=== PATIENT | male | born 1945 | race Caucasian/White ===

== ENCOUNTER 2019-02-20 08:32 | Outpatient (CLI) | payer OTHER | END 2019-02-20 20:52 | disposition home or self-care (01) | LOC: SUS 08:32 | PROVIDERS: ATTEND Family Medicine | DX: Z13.6 Encounter for screening for cardiovascular disorders (principal); R16.0 Hepatomegaly, not elsewhere classified; R91.8 Other nonspecific abnormal finding of lung field; F17.200 Nicotine dependence, unspecified, uncomplicated | CPT/HCPCS: 71046-TC; 76700-TC ==

== ENCOUNTER 2019-09-26 06:19 | Inpatient (IN) | payer OTHER, SELFPAY ==
[2019-09-26] VITALS (18 sets, daily range): BP systolic 96–156
[~2019-09-26] VITALS: Ht 175.3 cm; Wt 98.0 kg
[2019-09-26] MEDS ORDERED: NACL 0.9% 1,000 ML IV ONE (06:42)
[2019-09-26] MEDS ORDERED: LevALBUTEROL HCL 1.25 MG/0.5 ML *CONC.* VIAL.NEB (XOPENEX CONC.) INH ONE (06:45)
[2019-09-26] MEDS ORDERED: cefTRIAXone 1 GM IVPB PREMIX 50 ML IV ONE (06:45)
[2019-09-26] MEDS ORDERED: ROCURONIUM BROMIDE 10 MG/ML (ZEMURON) IV ONE (06:45)
[2019-09-26] MEDS ORDERED: IPRATROPIUM BROM 0.5 MG/2.5 ML VIAL.NEB (ATROVENT) INH ONE (06:45)
[2019-09-26] MEDS ORDERED: methylPREDNISolone SOD SUCC/PF 62.5 MG/ML VIAL IVP ONE (06:45)
[2019-09-26] MEDS ORDERED: LORazepam 2 MG/ML VIAL IVP ONE (07:15)
[2019-09-26] MEDS ORDERED: PROPOFOL DRIP 100 ML IV ONE ×2 (07:15→20:52)
[2019-09-26 07:34] LABS: BASOPHILS % (AUTO) 0.4 % (0.0-2.0); EOSINOPHILS # (AUTO) 0.3 K/uL (0.0-0.4); HEMATOCRIT 41.3 % (36-54); HEMOGLOBIN 13.1 g/dL (14.0-18.0); LYMPHOCYTES # (AUTO) 5.3 K/uL (1.0-5.5); LYMPHOCYTES % (AUTO) 41.5 % (20.5-51.5); MEAN CORPUSCULAR HEMOGLOBIN 33 pg (27-31); MEAN CORPUSCULAR HGB CONC 32 % (32-36); MEAN CORPUSCULAR VOLUME 103 fL (79.0-98.0); MONOCYTES # (AUTO) 0.6 K/uL (0.0-1.0); MONOCYTES % (AUTO) 4.5 % (1.7-9.3); NEUTROPHILS # (AUTO) 6.6 K/uL (1.8-7.7); NEUTROPHILS % (AUTO) 51.6 % (40.0-70.0); PLATELET COUNT (AUTO) 204 K/uL (130-430); RED BLOOD CELL COUNT(AUTO) 4.01 MIL/uL (4.2-6.2); RED CELL DISTRIBUTION WIDTH 17.4 % (9.0-15.0); WHITE BLOOD COUNT (AUTO) 12.8 K/uL (4.8-10.8)
[2019-09-26 07:42] LABS: ANION GAP 11 (5-15); CALCIUM 7.9 mg/dL (8.4-11.0); CHLORIDE 107 mmol/L (98-107); CREATININE 1.42 mg/dL (0.55-1.30); GLUCOSE 230 mg/dL (70-99); POTASSIUM 3.8 mmol/L (3.5-5.1); SODIUM SERUM 142 mmol/L (136-145); UREA NITROGEN, BLOOD 14 mg/dL (8-21)
[2019-09-26 07:46] LABS: INR 1.5 (0.80-1.20); PROTHROMBIN TIME 14.7 SECS (9.5-12.5)
[2019-09-26 07:48] LABS: ALANINE AMINOTRANSFERASE 30 U/L (12-78); ALBUMIN 3.3 g/dL (3.4-4.8); ASPARTATE AMINOTRANSFERASE 19 U/L (10-37); TOTAL BILIRUBIN 0.6 mg/dL (0.0-1.0)
[2019-09-26] MEDS ORDERED: PIPERACILLIN/TAZO 3.38 GM in D5W 50 ML IV ONE (08:15)
[2019-09-26] MEDS ORDERED: VANCOMYCIN HCL 1,000 MG in D5W 250 ML IV ONE (08:15)
[2019-09-26] MEDS ORDERED: PIPERACILLIN/TAZOBACTAM 3.375 GM/VIAL (ZOSYN) IV ONE (08:24)
[2019-09-26] MEDS ORDERED: VANCOMYCIN HCL 1000 MG/VIAL IV ONE (08:26)
[2019-09-26 09:18] LABS: BILIRUBIN,URINE NEGATIVE (NEGATIVE); BLOOD, URINE 3+ (NEGATIVE); CLARITY/URINE SL CLOUDY (CLEAR); COLOR,URINE YELLOW (YELLOW); GLUCOSE,URINE NEGATIVE (NEGATIVE); KETONES,URINE NEGATIVE (NEGATIVE); LEUKOCYTE ESTERASE ,URINE NEGATIVE (NEGATIVE); NITRITE, URINE NEGATIVE (NEGATIVE); PH,URINE 5.5 (5.0-8.0); PROTEIN URINE 2+ (NEGATIVE); UROBILINOGEN,URINE 0.2 (0.2-1.0)
[2019-09-26 09:23] LABS: BACTERIA,URINE MODERATE /HPF (None Seen); FINE GRANULAR CASTS,URINE 0-10 /LPF (None Seen); RBC,URINE >100 /HPF (0-3); WBC,URINE 0-3 /HPF (0-3)
[2019-09-26] MEDS ORDERED: LISI10TA5 PO (09:24)
[2019-09-26] MEDS ORDERED: ALBU8.5H8 INH (09:24)
[2019-09-26] MEDS ORDERED: PANT20TA2 PO (09:24)
[2019-09-26] MEDS ORDERED: METO25TA6 PO (09:24)
[2019-09-26] MEDS ORDERED: ALBU2.5V7 INH (09:24)
[2019-09-26] MEDS ORDERED: SPIRIVA INH (09:24)
[2019-09-26] MEDS ORDERED: AMIO100T4 PO (09:24)
[2019-09-26] MEDS ORDERED: CYAN100T3 PO (09:24)
[2019-09-26] MEDS ORDERED: BUDE6HFA INH (09:24)
[2019-09-26] MEDS ORDERED: INSU100V11 SQ (09:24)
[2019-09-26] MEDS ORDERED: LIP40 PO (09:24)
[2019-09-26] MEDS ORDERED: XALEYE OP (09:24)
[2019-09-26] MEDS ORDERED: CHOL20004 PO (09:24)
[2019-09-26] MEDS ORDERED: METF1000 PO (09:24)
[2019-09-26] MEDS ORDERED: TIMO5DRO15 EACH EYE (09:24)
[2019-09-26] MEDS ORDERED: ACETAMINOPHEN 650 MG SUPP.RECT RC PRN (09:30)
[2019-09-26] MEDS ORDERED: APIX5TAB4 PO (11:43)
[2019-09-26 12:58] LABS: C-REACTIVE PROTEIN QUANT 0.2 mg/dL (0-0.5)
[2019-09-26] MEDS: AZITHROMYCIN 500 MG in NS 250 ML IV SCH (13:38)
[2019-09-26] MEDS: PIPERACILLIN/TAZO 2.25G/DEX-IS 50 ML IV SCH ×2 (18:08→23:15)
[2019-09-26] MEDS: INSULIN LISPRO SLIDING SCALE 100 UNITS/ML VIAL (humaLOG) SUBCUT PRN ×2 (18:37→23:19)
[2019-09-26] MEDS: NACL 0.9% 1,000 ML IV SCH (20:40)
[2019-09-26] MEDS ORDERED: PROPOFOL DRIP 100 ML IV PRN (21:45)
[2019-09-27] VITALS (25 sets, daily range): BP systolic 119–195
[2019-09-27] MEDS: NACL 0.9% 1,000 ML IV SCH ×3 (05:11→23:03)
[2019-09-27] MEDS: PIPERACILLIN/TAZO 2.25G/DEX-IS 50 ML IV SCH ×4 (05:14→23:26)
[2019-09-27] MEDS: INSULIN LISPRO SLIDING SCALE 100 UNITS/ML VIAL (humaLOG) SUBCUT PRN ×3 (05:23→23:22)
[2019-09-27 06:03] LABS: BASOPHILS % (AUTO) 0.1 % (0.0-2.0); HEMATOCRIT 34.8 % (36-54); HEMOGLOBIN 11.8 g/dL (14.0-18.0); LYMPHOCYTES # (AUTO) 0.8 K/uL (1.0-5.5); LYMPHOCYTES % (AUTO) 7.7 % (20.5-51.5); MEAN CORPUSCULAR HEMOGLOBIN 34 pg (27-31); MEAN CORPUSCULAR HGB CONC 34 % (32-36); MONOCYTES # (AUTO) 0.5 K/uL (0.0-1.0); MONOCYTES % (AUTO) 4.4 % (1.7-9.3); NEUTROPHILS # (AUTO) 9.4 K/uL (1.8-7.7); NEUTROPHILS % (AUTO) 87.8 % (40.0-70.0); RED BLOOD CELL COUNT(AUTO) 3.48 MIL/uL (4.2-6.2); RED CELL DISTRIBUTION WIDTH 16.6 % (9.0-15.0); WHITE BLOOD COUNT (AUTO) 10.7 K/uL (4.8-10.8)
[2019-09-27 06:54] LABS: MEAN CORPUSCULAR VOLUME 101 fL (79.0-98.0); PLATELET COUNT (AUTO) 125 K/uL (130-430)
[2019-09-27 07:10] LABS: FERRITIN 53 ng/mL (30-400)
[2019-09-27 07:33] LABS: ALBUMIN 2.9 g/dL (3.4-4.8); ANION GAP 11 (5-15); CALCIUM 8.2 mg/dL (8.4-11.0); CHLORIDE 105 mmol/L (98-107); CREATININE 1.11 mg/dL (0.55-1.30); GLUCOSE 162 mg/dL (70-99); SODIUM SERUM 137 mmol/L (136-145); THYROID STIMULATING HORMONE 0.98 uIu/mL (0.34-4.82); TOTAL BILIRUBIN 0.9 mg/dL (0.0-1.0); UREA NITROGEN, BLOOD 18 mg/dL (8-21)
[2019-09-27 07:36] LABS: POTASSIUM 5.6 mmol/L (3.5-5.1)
[2019-09-27 07:54] LABS: ASPARTATE AMINOTRANSFERASE 54 U/L (10-37)
[2019-09-27 07:55] LABS: ALANINE AMINOTRANSFERASE 29 U/L (12-78)
[2019-09-27] MEDS: FAMOTIDINE PF 20 MG/2 ML VIAL IVP SCH (08:04)
[2019-09-27] MEDS ORDERED: ENOXAPARIN SODIUM 40 MG/0.4 ML SYRINGE SUBCUT SCH (09:00)
[2019-09-27] MEDS ORDERED: APIXABAN 2.5 MG TABLET NG ONE (09:30)
[2019-09-27] MEDS ORDERED: AMIODARONE HCL 200 MG TABLET NG ONE (09:30)
[2019-09-27] MEDS ORDERED: PANTOPRAZOLE SODIUM 40 MG/VIAL (PROTONIX) IVP ONE (10:30)
[2019-09-27] MEDS ORDERED: PANTOPRAZOLE SODIUM 80 MG in NS 100 ML IV ONE (12:30)
[2019-09-27] MEDS ORDERED: PANTOPRAZOLE SODIUM 40 MG/VIAL (PROTONIX) ONE (12:32)
[2019-09-27] MEDS: AZITHROMYCIN 500 MG in NS 250 ML IV SCH (12:57)
[2019-09-27 13:21] LABS: HEMATOCRIT 35.3 % (36-54); HEMOGLOBIN 11.6 g/dL (14.0-18.0)
[2019-09-27] MEDS: PANTOPRAZOLE SODIUM 40 MG in NS 50 ML IV SCH ×3 (13:30→23:26)
[2019-09-27] MEDS ORDERED: FUROSEMIDE 20 MG/2 ML VIAL IVP ONE (15:45)
[2019-09-27 16:13] LABS: ANION GAP 13 (5-15); CHLORIDE 104 mmol/L (98-107); CREATININE 1.29 mg/dL (0.55-1.30); GLUCOSE 162 mg/dL (70-99); POTASSIUM 4.2 mmol/L (3.5-5.1); SODIUM SERUM 140 mmol/L (136-145); UREA NITROGEN, BLOOD 17 mg/dL (8-21)
[2019-09-27] MEDS ORDERED: METOPROLOL TARTRATE 5 MG/5 ML VIAL IVP ONE (18:45)
[2019-09-27 20:49] LABS: HEMATOCRIT 35.1 % (36-54); HEMOGLOBIN 11.6 g/dL (14.0-18.0)
[2019-09-27] MEDS: APIXABAN 2.5 MG TABLET NG SCH (21:00)
[2019-09-27] MEDS ORDERED: PHYTONADIONE 10 MG/ML AMP SUBCUT ONE (21:45)
[2019-09-28] VITALS (25 sets, daily range): BP systolic 117–162
[2019-09-28 05:31] LABS: BASOPHILS # (AUTO) 0.1 K/uL (0.0-0.2); BASOPHILS % (AUTO) 0.5 % (0.0-2.0); HEMATOCRIT 37.1 % (36-54); HEMOGLOBIN 12.2 g/dL (14.0-18.0); LYMPHOCYTES # (AUTO) 1.6 K/uL (1.0-5.5); LYMPHOCYTES % (AUTO) 12.2 % (20.5-51.5); MEAN CORPUSCULAR HEMOGLOBIN 33 pg (27-31); MEAN CORPUSCULAR HGB CONC 33 % (32-36); MEAN CORPUSCULAR VOLUME 101 fL (79.0-98.0); MONOCYTES # (AUTO) 0.8 K/uL (0.0-1.0); MONOCYTES % (AUTO) 6.1 % (1.7-9.3); NEUTROPHILS # (AUTO) 10.4 K/uL (1.8-7.7); NEUTROPHILS % (AUTO) 81.2 % (40.0-70.0); PLATELET COUNT (AUTO) 120 K/uL (130-430); RED BLOOD CELL COUNT(AUTO) 3.69 MIL/uL (4.2-6.2); RED CELL DISTRIBUTION WIDTH 16.6 % (9.0-15.0); WHITE BLOOD COUNT (AUTO) 12.9 K/uL (4.8-10.8)
[2019-09-28] MEDS: PANTOPRAZOLE SODIUM 40 MG in NS 50 ML IV SCH ×4 (05:53→20:28)
[2019-09-28] MEDS: PIPERACILLIN/TAZO 2.25G/DEX-IS 50 ML IV SCH ×3 (05:54→17:35)
[2019-09-28] MEDS: NACL 0.9% 1,000 ML IV SCH (05:56)
[2019-09-28 06:04] LABS: ALANINE AMINOTRANSFERASE 25 U/L (12-78); ALBUMIN 2.9 g/dL (3.4-4.8); ANION GAP 6 (5-15); CHLORIDE 102 mmol/L (98-107); CHOLESTEROL 110 mg/dL (<200); CREATININE 1.16 mg/dL (0.55-1.30); GLUCOSE 151 mg/dL (70-99); HDL CHOLESTEROL 43 mg/dL (>45); LDL CHOLESTEROL 59 mg/dL (<100); SODIUM SERUM 136 mmol/L (136-145); THYROID STIMULATING HORMONE 1.59 uIu/mL (0.34-4.82); TOTAL BILIRUBIN 1.1 mg/dL (0.0-1.0); TRIGLYCERIDES 69 mg/dL (30-150); UREA NITROGEN, BLOOD 17 mg/dL (8-21)
[2019-09-28 06:30] LABS: ASPARTATE AMINOTRANSFERASE 16 U/L (10-37)
[2019-09-28] MEDS: APIXABAN 2.5 MG TABLET NG SCH ×2 (08:40→20:27)
[2019-09-28] MEDS: FAMOTIDINE PF 20 MG/2 ML VIAL IVP SCH (08:41)
[2019-09-28] MEDS: AMIODARONE HCL 200 MG TABLET PO SCH ×2 (09:00→20:29)
[2019-09-28] MEDS ORDERED: AMIODARONE HCL 200 MG TABLET NG SCH (09:00)
[2019-09-28] MEDS ORDERED: CARVEDILOL 6.25 MG TABLET (COREG) PO ONE (09:45)
[2019-09-28] MEDS ORDERED: ONDANSETRON HCL 4 MG/2 ML VIAL IVP PRN (15:00)
[2019-09-28] MEDS: INSULIN LISPRO SLIDING SCALE 100 UNITS/ML VIAL (humaLOG) SUBCUT PRN (17:43)
[2019-09-28 18:06] LABS: MYCOPLASMA PNEUMONIAE IgM <770 U/mL (0-769)
[2019-09-28] MEDS: IPRATROPIUM/ALBUTEROL SULFATE 3 ML AMPUL.NEB (DUONEB) INH SCH ×2 (19:00→23:08)
[2019-09-28] MEDS: CARVEDILOL 6.25 MG TABLET (COREG) PO SCH (20:28)
[2019-09-28] MEDS: DOXYCYCLINE HYCLATE 100 MG CAPSULE PO SCH (20:29)
[2019-09-29] VITALS (21 sets, daily range): BP systolic 108–205
[2019-09-29] MEDS: NACL 0.9% 1,000 ML IV SCH (00:39)
[2019-09-29] MEDS: PIPERACILLIN/TAZO 2.25G/DEX-IS 50 ML IV SCH ×3 (00:40→11:53)
[2019-09-29] MEDS: PANTOPRAZOLE SODIUM 40 MG in NS 50 ML IV SCH ×2 (00:40→05:36)
[2019-09-29] MEDS: INSULIN LISPRO SLIDING SCALE 100 UNITS/ML VIAL (humaLOG) SUBCUT PRN ×3 (01:01→12:06)
[2019-09-29] MEDS: IPRATROPIUM/ALBUTEROL SULFATE 3 ML AMPUL.NEB (DUONEB) INH SCH ×6 (04:09→23:05)
[2019-09-29 06:04] LABS: BASOPHILS % (AUTO) 0.4 % (0.0-2.0); EOSINOPHILS # (AUTO) 0.1 K/uL (0.0-0.4); EOSINOPHILS % (AUTO) 1.2 % (0.0-4.0); HEMATOCRIT 37.7 % (36-54); HEMOGLOBIN 12.2 g/dL (14.0-18.0); LYMPHOCYTES # (AUTO) 2.4 K/uL (1.0-5.5); LYMPHOCYTES % (AUTO) 19.5 % (20.5-51.5); MEAN CORPUSCULAR HEMOGLOBIN 33 pg (27-31); MEAN CORPUSCULAR HGB CONC 32 % (32-36); MEAN CORPUSCULAR VOLUME 102 fL (79.0-98.0); MONOCYTES # (AUTO) 0.9 K/uL (0.0-1.0); MONOCYTES % (AUTO) 7.6 % (1.7-9.3); NEUTROPHILS # (AUTO) 8.8 K/uL (1.8-7.7); NEUTROPHILS % (AUTO) 71.3 % (40.0-70.0); PLATELET COUNT (AUTO) 176 K/uL (130-430); RED CELL DISTRIBUTION WIDTH 16.9 % (9.0-15.0); WHITE BLOOD COUNT (AUTO) 12.4 K/uL (4.8-10.8)
[2019-09-29] MEDS: APIXABAN 2.5 MG TABLET NG SCH ×2 (07:40→20:27)
[2019-09-29] MEDS: FAMOTIDINE PF 20 MG/2 ML VIAL IVP SCH (08:00)
[2019-09-29] MEDS: AMIODARONE HCL 200 MG TABLET PO SCH ×2 (08:01→20:27)
[2019-09-29] MEDS: CARVEDILOL 6.25 MG TABLET (COREG) PO SCH ×2 (08:02→21:00)
[2019-09-29] MEDS: DOXYCYCLINE HYCLATE 100 MG CAPSULE PO SCH ×2 (08:03→20:28)
[2019-09-29 09:40] LABS: ALANINE AMINOTRANSFERASE 38 U/L (12-78); ANION GAP 9 (5-15); ASPARTATE AMINOTRANSFERASE 21 U/L (10-37); CHLORIDE 104 mmol/L (98-107); CREATININE 0.96 mg/dL (0.55-1.30); GLUCOSE 206 mg/dL (70-99); SODIUM SERUM 141 mmol/L (136-145); TOTAL BILIRUBIN 1.4 mg/dL (0.0-1.0); UREA NITROGEN, BLOOD 16 mg/dL (8-21)
[2019-09-29] MEDS: PANTOPRAZOLE SODIUM 40 MG TAB PO SCH ×2 (09:50→20:28)
[2019-09-29] MEDS: cefTRIAXone 1 GM in D5W 50 ML IV SCH (18:26)
[2019-09-30] MEDS: INSULIN LISPRO SLIDING SCALE 100 UNITS/ML VIAL (humaLOG) SUBCUT PRN ×4 (00:03→17:40)
[2019-09-30] MEDS: IPRATROPIUM/ALBUTEROL SULFATE 3 ML AMPUL.NEB (DUONEB) INH SCH ×6 (03:35→23:00)
[2019-09-30 07:02] LABS: BASOPHILS % (AUTO) 0.3 % (0.0-2.0); EOSINOPHILS # (AUTO) 0.2 K/uL (0.0-0.4); EOSINOPHILS % (AUTO) 3.2 % (0.0-4.0); HEMATOCRIT 31.1 % (36-54); HEMOGLOBIN 10.5 g/dL (14.0-18.0); LYMPHOCYTES % (AUTO) 18.3 % (20.5-51.5); MEAN CORPUSCULAR HEMOGLOBIN 34 pg (27-31); MEAN CORPUSCULAR HGB CONC 34 % (32-36); MEAN CORPUSCULAR VOLUME 99 fL (79.0-98.0); MONOCYTES # (AUTO) 0.4 K/uL (0.0-1.0); MONOCYTES % (AUTO) 6.6 % (1.7-9.3); NEUTROPHILS # (AUTO) 4.1 K/uL (1.8-7.7); NEUTROPHILS % (AUTO) 71.6 % (40.0-70.0); PLATELET COUNT (AUTO) 106 K/uL (130-430); RED BLOOD CELL COUNT(AUTO) 3.13 MIL/uL (4.2-6.2); RED CELL DISTRIBUTION WIDTH 16.6 % (9.0-15.0); WHITE BLOOD COUNT (AUTO) 5.7 K/uL (4.8-10.8)
[2019-09-30 07:54] VITALS: BP_SYST 150
[2019-09-30] MEDS ORDERED: FUROSEMIDE 20 MG/2 ML VIAL IVP ONE (09:15)
[2019-09-30] MEDS: AMIODARONE HCL 200 MG TABLET PO SCH ×2 (09:25→21:28)
[2019-09-30] MEDS: CARVEDILOL 6.25 MG TABLET (COREG) PO SCH ×2 (09:25→21:29)
[2019-09-30] MEDS: PANTOPRAZOLE SODIUM 40 MG TAB PO SCH ×2 (09:25→21:28)
[2019-09-30] MEDS: DOXYCYCLINE HYCLATE 100 MG CAPSULE PO SCH ×2 (09:27→21:29)
[2019-09-30] MEDS: APIXABAN 2.5 MG TABLET NG SCH ×2 (09:27→21:31)
[2019-09-30] MEDS ORDERED: POLYETHYLENE GLYCOL 3350, 17 GM/ POWD.PACK PO PRN (11:15)
[2019-09-30] MEDS ORDERED: DOCUSATE SODIUM 100 MG CAPSULE PO PRN (11:15)
[2019-09-30 12:30] VITALS: BP_SYST 133
[2019-09-30] MEDS: cefTRIAXone 1 GM in D5W 50 ML IV SCH (14:23)
[2019-09-30 16:39] VITALS: BP_SYST 126
[2019-09-30 20:05] VITALS: BP_SYST 125
[2019-10-01 00:01] VITALS: BP_SYST 128
[2019-10-01] MEDS: INSULIN LISPRO SLIDING SCALE 100 UNITS/ML VIAL (humaLOG) SUBCUT PRN ×5 (00:33→23:21)
[2019-10-01 06:16] LABS: BASOPHILS % (AUTO) 0.5 % (0.0-2.0); EOSINOPHILS # (AUTO) 0.2 K/uL (0.0-0.4); HEMATOCRIT 31.3 % (36-54); HEMOGLOBIN 10.6 g/dL (14.0-18.0); LYMPHOCYTES # (AUTO) 0.9 K/uL (1.0-5.5); LYMPHOCYTES % (AUTO) 18.1 % (20.5-51.5); MEAN CORPUSCULAR HEMOGLOBIN 34 pg (27-31); MEAN CORPUSCULAR HGB CONC 34 % (32-36); MEAN CORPUSCULAR VOLUME 99 fL (79.0-98.0); MONOCYTES # (AUTO) 0.4 K/uL (0.0-1.0); MONOCYTES % (AUTO) 7.2 % (1.7-9.3); NEUTROPHILS # (AUTO) 3.6 K/uL (1.8-7.7); NEUTROPHILS % (AUTO) 70.2 % (40.0-70.0); PLATELET COUNT (AUTO) 111 K/uL (130-430); RED BLOOD CELL COUNT(AUTO) 3.16 MIL/uL (4.2-6.2); RED CELL DISTRIBUTION WIDTH 16.5 % (9.0-15.0); WHITE BLOOD COUNT (AUTO) 5.1 K/uL (4.8-10.8)
[2019-10-01 06:29] LABS: ALANINE AMINOTRANSFERASE 38 U/L (12-78); ALBUMIN 2.5 g/dL (3.4-4.8); ANION GAP 5 (5-15); ASPARTATE AMINOTRANSFERASE 25 U/L (10-37); CALCIUM 8.3 mg/dL (8.4-11.0); CHLORIDE 102 mmol/L (98-107); CREATININE 0.96 mg/dL (0.55-1.30); GLUCOSE 168 mg/dL (70-99); POTASSIUM 3.7 mmol/L (3.5-5.1); SODIUM SERUM 136 mmol/L (136-145); TOTAL BILIRUBIN 0.7 mg/dL (0.0-1.0); UREA NITROGEN, BLOOD 14 mg/dL (8-21)
[2019-10-01] MEDS: IPRATROPIUM/ALBUTEROL SULFATE 3 ML AMPUL.NEB (DUONEB) INH SCH ×5 (07:07→23:59)
[2019-10-01 08:10] VITALS: BP_SYST 137
[2019-10-01] MEDS: DOXYCYCLINE HYCLATE 100 MG CAPSULE PO SCH ×2 (08:44→20:35)
[2019-10-01] MEDS: PANTOPRAZOLE SODIUM 40 MG TAB PO SCH ×2 (08:44→20:34)
[2019-10-01] MEDS: APIXABAN 2.5 MG TABLET NG SCH ×2 (08:45→20:33)
[2019-10-01] MEDS: AMIODARONE HCL 200 MG TABLET PO SCH ×2 (08:46→20:34)
[2019-10-01] MEDS: CARVEDILOL 6.25 MG TABLET (COREG) PO SCH ×2 (08:47→20:35)
[2019-10-01] MEDS: FUROSEMIDE 20 MG/2 ML VIAL IVP SCH (08:48)
[2019-10-01 12:35] VITALS: BP_SYST 131
[2019-10-01] MEDS: cefTRIAXone 1 GM in D5W 50 ML IV SCH (15:10)
[2019-10-01 16:00] VITALS: BP_SYST 140
[2019-10-01 20:37] VITALS: BP_SYST 145
[2019-10-01 23:30] VITALS: BP_SYST 150
[2019-10-02] MEDS: IPRATROPIUM/ALBUTEROL SULFATE 3 ML AMPUL.NEB (DUONEB) INH SCH ×6 (03:20→23:16)
[2019-10-02] MEDS: INSULIN LISPRO SLIDING SCALE 100 UNITS/ML VIAL (humaLOG) SUBCUT PRN ×4 (05:23→23:21)
[2019-10-02 08:00] VITALS: BP_SYST 148
[2019-10-02] MEDS: PANTOPRAZOLE SODIUM 40 MG TAB PO SCH ×2 (08:30→21:31)
[2019-10-02] MEDS: APIXABAN 2.5 MG TABLET NG SCH ×2 (08:31→21:29)
[2019-10-02] MEDS: CARVEDILOL 6.25 MG TABLET (COREG) PO SCH ×2 (08:31→21:33)
[2019-10-02] MEDS: DOXYCYCLINE HYCLATE 100 MG CAPSULE PO SCH ×2 (08:32→21:31)
[2019-10-02] MEDS: AMIODARONE HCL 200 MG TABLET PO SCH ×2 (08:32→21:34)
[2019-10-02] MEDS: FUROSEMIDE 20 MG/2 ML VIAL IVP SCH (08:33)
[2019-10-02 12:17] VITALS: BP_SYST 138
[2019-10-02] MEDS: cefTRIAXone 1 GM in D5W 50 ML IV SCH (14:33)
[2019-10-02 16:29] VITALS: BP_SYST 126
[2019-10-02 20:00] VITALS: BP_SYST 141
[2019-10-02 23:17] VITALS: BP_SYST 133
[2019-10-02 23:27] VITALS: BP_SYST 133
[2019-10-03] MEDS: IPRATROPIUM/ALBUTEROL SULFATE 3 ML AMPUL.NEB (DUONEB) INH SCH ×3 (03:10→11:26)
[2019-10-03] MEDS: INSULIN LISPRO SLIDING SCALE 100 UNITS/ML VIAL (humaLOG) SUBCUT PRN ×2 (05:15→11:34)
[2019-10-03 06:55] LABS: BASOPHILS % (AUTO) 0.5 % (0.0-2.0); EOSINOPHILS # (AUTO) 0.1 K/uL (0.0-0.4); EOSINOPHILS % (AUTO) 2.9 % (0.0-4.0); HEMATOCRIT 34.4 % (36-54); HEMOGLOBIN 11.4 g/dL (14.0-18.0); LYMPHOCYTES % (AUTO) 19.8 % (20.5-51.5); MEAN CORPUSCULAR HEMOGLOBIN 33 pg (27-31); MEAN CORPUSCULAR HGB CONC 33 % (32-36); MEAN CORPUSCULAR VOLUME 99 fL (79.0-98.0); MONOCYTES # (AUTO) 0.3 K/uL (0.0-1.0); MONOCYTES % (AUTO) 5.8 % (1.7-9.3); NEUTROPHILS # (AUTO) 3.7 K/uL (1.8-7.7); PLATELET COUNT (AUTO) 119 K/uL (130-430); RED BLOOD CELL COUNT(AUTO) 3.48 MIL/uL (4.2-6.2); RED CELL DISTRIBUTION WIDTH 16.6 % (9.0-15.0); WHITE BLOOD COUNT (AUTO) 5.2 K/uL (4.8-10.8)
[2019-10-03 08:00] VITALS: BP_SYST 143
[2019-10-03 08:23] LABS: ALANINE AMINOTRANSFERASE 38 U/L (12-78); ALBUMIN 2.8 g/dL (3.4-4.8); ANION GAP 8 (5-15); ASPARTATE AMINOTRANSFERASE 18 U/L (10-37); CALCIUM 8.6 mg/dL (8.4-11.0); CHLORIDE 101 mmol/L (98-107); CREATININE 1.15 mg/dL (0.55-1.30); GLUCOSE 186 mg/dL (70-99); POTASSIUM 3.4 mmol/L (3.5-5.1); SODIUM SERUM 137 mmol/L (136-145); TOTAL BILIRUBIN 0.7 mg/dL (0.0-1.0); UREA NITROGEN, BLOOD 12 mg/dL (8-21)
[2019-10-03] MEDS: DOXYCYCLINE HYCLATE 100 MG CAPSULE PO SCH (08:24)
[2019-10-03] MEDS: PANTOPRAZOLE SODIUM 40 MG TAB PO SCH (08:24)
[2019-10-03] MEDS: AMIODARONE HCL 200 MG TABLET PO SCH (08:25)
[2019-10-03] MEDS: CARVEDILOL 6.25 MG TABLET (COREG) PO SCH (08:25)
[2019-10-03] MEDS: APIXABAN 2.5 MG TABLET NG SCH (08:26)
[2019-10-03] MEDS ORDERED: FUROSEMIDE 40 MG TABLET PO SCH (09:00)
[2019-10-03] MEDS ORDERED: POTASSIUM CHLORIDE 10 MEQ TAB.PRT.SR PO ONE ×2 (13:00)
[2019-10-03 13:17] VITALS: BP_SYST 126
[2019-10-03 13:19] VITALS: BP_SYST 146
[2019-10-04] MEDS ORDERED: PANTOPRAZOLE SODIUM 40 MG TAB PO SCH (09:00)
== END 2019-10-03 14:30 | disposition home or self-care (01) | DRG 871 ==
LOC: SED 06:19 → SIC 09:09 → EEVIPCON 09:11 → SIC 10:10 → STU 09-29 18:48
PROVIDERS: ADMIT Internal Medicine; ATTEND Internal Medicine
PROC: 02HV33Z Insertion of Infusion Device into Superior Vena Cava, Percutaneous Approach (ICD-10-PCS; principal; 2019-09-27)
PROC: B548ZZA Ultrasonography of Superior Vena Cava, Guidance (ICD-10-PCS; 2019-09-27)
DX: A41.9 Sepsis, unspecified organism (principal); J18.9 Pneumonia, unspecified organism; J96.01 Acute respiratory failure with hypoxia; J44.1 Chronic obstructive pulmonary disease with (acute) exacerbation; E87.2 Acidosis; J44.0 Chronic obstructive pulmonary disease with (acute) lower respiratory infection; I48.92 Unspecified atrial flutter; J91.8 Pleural effusion in other conditions classified elsewhere; E44.0 Moderate protein-calorie malnutrition; R65.20 Severe sepsis without septic shock; I11.0 Hypertensive heart disease with heart failure; E03.9 Hypothyroidism, unspecified; E11.9 Type 2 diabetes mellitus without complications; E78.5 Hyperlipidemia, unspecified; F17.290 Nicotine dependence, other tobacco product, uncomplicated; E66.9 Obesity, unspecified; I48.0 Paroxysmal atrial fibrillation; I34.0 Nonrheumatic mitral (valve) insufficiency; I27.20 Pulmonary hypertension, unspecified; E87.6 Hypokalemia; I50.9 Heart failure, unspecified; Z78.9 Other specified health status; Z79.01 Long term (current) use of anticoagulants; Z79.4 Long term (current) use of insulin; Z79.82 Long term (current) use of aspirin; Z79.899 Other long term (current) drug therapy; Z68.31 Body mass index [BMI] 31.0-31.9, adult; Z03.818 Encounter for observation for suspected exposure to other biological agents ruled out
CPT/HCPCS: 36415; 36600; 71045; 80048; 80053; 80061; 81000-TC; 82550-TC; 82728; 82803-TC; 82962; 83605; 83615-TC; 83735-TC; 83880; 84443-TC; 84484; 85018-TC; 85025; 85610-TC; 85651-TC; 85730-TC; 86140; 86710; 86738; 87040-TC; 87070-TC; 87081; 87086; 87205-TC; 87449; 92610-GN; 93005; 93306; 94002; 94003; 94640; 94760; 96365; 96366; 96367; 96375; 99285; C1751; C9113; G0378; J0456; J0696; J1650; J1940; J2060; J2543; J2704; J2930; J3370; J3430; J3490; J7030; J7050; J7060; J7612

== ENCOUNTER 2019-11-10 09:03 | Inpatient (IN) | payer OTHER, SELFPAY ==
[~2019-11-10] VITALS: Ht 172.7 cm; Wt 86.3 kg
[~2019-11-10 09:03] MED LIST: ALBU8.5H8 INH; AMIO100T4 PO; APIX5TAB4 PO; BUDE6HFA INH; CHOL20004 PO; CYAN100T3 PO; LIP40 PO; METF1000 PO; PANT20TA2 PO; SPIRIVA INH; TIMO5DRO15 EACH EYE; XALEYE OP
[2019-11-10 09:14] VITALS: BP_SYST 165
--- NOTE | 2019-11-10 09:21 | NUR ---
BIB SQ 64 from home for ALOC Placed in room 02 . Placed on county records management officer, blood pressure machine and pulse oximeter. To gown for exam. Side rails up. Dietary tray ordered. POC BS [address] Snell
--- NOTE | 2019-11-10 09:25 | NUR ---
Food tray at bedside patient eating, Dr. Snell at bedside, lab at bedside. Spoke with King per patient request who stated patient has been dizzy, seen by Dr. Wright who took blood work no other recommendation, pt didn't wake up until noon, fell yesterday, was unable to wake him up this AM, 911 called
[2019-11-10 09:41] LABS: BASOPHILS % (AUTO) 0.8 % (0.0-2.0); EOSINOPHILS # (AUTO) 0.1 K/uL (0.0-0.4); HEMATOCRIT 34.1 % (36-54); HEMOGLOBIN 11.6 g/dL (14.0-18.0); LYMPHOCYTES # (AUTO) 1.5 K/uL (1.0-5.5); LYMPHOCYTES % (AUTO) 23.6 % (20.5-51.5); MEAN CORPUSCULAR HEMOGLOBIN 34 pg (27-31); MEAN CORPUSCULAR HGB CONC 34 % (32-36); MEAN CORPUSCULAR VOLUME 99 fL (79.0-98.0); MONOCYTES # (AUTO) 0.4 K/uL (0.0-1.0); NEUTROPHILS # (AUTO) 4.3 K/uL (1.8-7.7); NEUTROPHILS % (AUTO) 67.6 % (40.0-70.0); PLATELET COUNT (AUTO) 178 K/uL (130-430); RED BLOOD CELL COUNT(AUTO) 3.45 MIL/uL (4.2-6.2); RED CELL DISTRIBUTION WIDTH 17.8 % (9.0-15.0); WHITE BLOOD COUNT (AUTO) 6.3 K/uL (4.8-10.8)
[2019-11-10 09:48] LABS: ANION GAP 8 (5-15); CALCIUM 8.6 mg/dL (8.4-11.0); CHLORIDE 108 mmol/L (98-107); CREATININE 1.57 mg/dL (0.55-1.30); GLUCOSE 59 mg/dL (70-99); POTASSIUM 4.6 mmol/L (3.5-5.1); SODIUM SERUM 143 mmol/L (136-145); UREA NITROGEN, BLOOD 13 mg/dL (8-21)
[2019-11-10] MEDS ORDERED: INSU100I20 SQ (09:51)
[2019-11-10 09:53] LABS: ALANINE AMINOTRANSFERASE 36 U/L (12-78); ALBUMIN 3.2 g/dL (3.4-4.8); ASPARTATE AMINOTRANSFERASE 27 U/L (10-37); TOTAL BILIRUBIN 0.6 mg/dL (0.0-1.0)
[2019-11-10] MEDS ORDERED: D5W 1,000 ML IV PRN ×2 (09:53→13:51)
[2019-11-10] MEDS ORDERED: GLUCOSE 15 GM GEL (in 37.5 GM TUBE) PO PRN ×2 (10:00→14:00)
[2019-11-10] MEDS ORDERED: DEXTROSE 50% JECT 50 ML DISP.SYRIN IVP PRN ×2 (10:00→14:00)
[2019-11-10] MEDS ORDERED: DEXTROSE 50% JECT 50 ML DISP.SYRIN IVP ONE (10:00)
--- NOTE | 2019-11-10 10:12 | NUR ---
Admit orders obtained placed in computer awaiting call from [facility] charge for bed placement
[2019-11-10] MEDS ORDERED: DEXTROSE 50% JECT 50 ML DISP.SYRIN ONE (10:15)
--- NOTE | 2019-11-10 10:23 | NUR ---
20G IV TO LEFT HAND FROM THE FEILD INFILTRATED NEW IV STARTED TO LEFT WRIST WITH GOOD BLOOD FLOW AMP D50 GIVEN FOR POC BS 47. PATIENT ATE 90% OF TRAY A&O X 4 WILL CONTINUE TO MONITOR
[2019-11-10] MEDS: D5W 1,000 ML IV SCH ×2 (10:40→20:48)
--- NOTE | 2019-11-10 10:56 | NUR ---
CALLED TO UPDATED ON PLAN OF CARE, ADDRESSED ALL CONCERNS DENIED ANY ADDITIONAL QUESTIONS
--- NOTE | 2019-11-10 11:05 | NUR ---
REPEAT POC BS 153 IV D5W INFUSING WITHOUT COMPLICATION AWAITING BED ASSIGNMENT
--- NOTE | 2019-11-10 11:09 | NUR ---
Medication reconciliation completed with information provided by prior record and the patient. Any prior medication reconciliation on file was reviewed and corrected.
--- NOTE | 2019-11-10 11:30 | NUR ---
opening note received bedside sbar from ED nurse, patient awake, alert, bed in low and locked position, call light within reach,
--- NOTE | 2019-11-10 11:32 | NUR ---
ADMIT NOTE Received pt from ER to the floor with a diagnosis of HYPOGLYCEMIA. Admission process initiated. patient oriented to pain management, safety and call light-teach back done.
[2019-11-10 11:45] VITALS: BP_SYST 160
--- NOTE | 2019-11-10 11:47 | NUR ---
Patient will be admitted to care of [facility]. Admitted to Tele unit. Will go to room 110. Belongings list completed. Complete and up to date summary report printed. SBAR report to be given at bedside with opportunity for questions to Tiffanie HUNT.
--- NOTE | 2019-11-10 11:50 | NUR ---
At time of transfer glucose 152 IVF infusing without complication A&O x 4 addressed all concerns and questions by patient and recieving nurse
[2019-11-10 12:08] VITALS: BP_SYST 160
--- NOTE | 2019-11-10 13:30 | NUR ---
nurse note patient in bed, respirations even, non labored, bed in low and locked position, call light within reach, bed alarm on
[2019-11-10] MEDS ORDERED: ALBUTEROL SULFATE 0.083% 2.5 MG/3 ML VIAL.NEB INH PRN (13:45)
[2019-11-10] MEDS ORDERED: HYDROcodone/ACETAMIN 5-325 MG TAB (NORCO/ VICODIN) PO PRN (14:00)
[2019-11-10] MEDS ORDERED: HYDROcodone/ACETAMIN 10-325 MG TAB PO PRN (14:00)
[2019-11-10] MEDS ORDERED: LORazepam 2 MG/ML VIAL IVP PRN (14:00)
[2019-11-10] MEDS ORDERED: ONDANSETRON HCL 4 MG/2 ML VIAL IVP PRN (14:00)
[2019-11-10] MEDS ORDERED: ACETAMINOPHEN 325 MG TABLET PO PRN (14:00)
--- NOTE | 2019-11-10 14:01 | NUR ---
CONSULTATION PAGED REASON FOR CONSULTATION:HTN WAS CONSULT CALLED?Y PERSON WHO WAS NOTIFIED:NICCI CONSULTING PHYSICIAN:PASTOR PANG IT INFRASTRUCTURE SPECIALIST SPECIALTY:CARDIO IT INFRASTRUCTURE SPECIALIST PHONE NUMBER:[phone] REQUESTING PHYSICIAN:SUNNY ROQUE
--- NOTE | 2019-11-10 14:08 | NUR ---
CONSULTATION PAGED REASON FOR CONSULTATION:HYPOGLYCEMIA / DM WAS CONSULT CALLED?Y PERSON WHO WAS NOTIFIED:EVAN CONSULTING PHYSICIAN:ASHLEY SOUZA COMPUTATIONAL THEORY SCIENTIST SPECIALTY:ENDOCRINCE COMPUTATIONAL THEORY SCIENTIST PHONE NUMBER:[phone] REQUESTING PHYSICIAN:SUNNY PANG DOCTOR OUT OF TOWN WAS INFORMED HE WILL NOT TAKE PATIENT AND NEED TO REQUEST FOR A DIFFERENT PHYSICIAN.
--- NOTE | 2019-11-10 14:16 | NUR ---
CONSULTATION PAGED REASON FOR CONSULTATION:HYPOGLYCEMIA / DM WAS CONSULT CALLED?Y PERSON WHO WAS NOTIFIED:NAHOMY CONSULTING PHYSICIAN:SUE MONTEIRO WIRE TWISTER SPECIALTY:ENDOCRINE WIRE TWISTER PHONE NUMBER:[phone] REQUESTING PHYSICIAN:SUNNY PANG
[2019-11-10 16:00] VITALS: BP_SYST 164
[2019-11-10] MEDS: LATANOPROST 2.5 ML DROPS (XALATAN) OP SCH (17:35)
--- NOTE | 2019-11-10 17:57 | NUR ---
photos photos of wounds taken
[2019-11-10] MEDS ORDERED: metFORMIN HCL 500 MG TABLET PO SCH (18:00)
[2019-11-10 18:02] VITALS: BP_SYST 160
--- NOTE | 2019-11-10 19:25 | NUR ---
closing notes beside sbar given to night RN, patient in bed, awake, alert, respirations even, non labored, bed in low and locked position, call light within reach, bed alarm on, endorsed care to night RN
[2019-11-10] MEDS: ALBUTEROL SULFATE 0.083% 2.5 MG/3 ML VIAL.NEB INH SCH (19:36)
[2019-11-10] MEDS: BUDESONIDE 0.5 MG/2 ML AMPUL.NEB INH SCH (19:36)
[2019-11-10] MEDS: IPRATROPIUM BROM 0.5 MG/2.5 ML VIAL.NEB (ATROVENT) INH SCH (19:36)
[2019-11-10 20:00] VITALS: BP_SYST 149
--- NOTE | 2019-11-10 20:00 | NUR ---
Pt received awoke alert )X4 lungs, clear, abdomen soft skin discoloration to right lower extremity, and sore on right foot, denies having pain. Bed in low position with wheels locked call light in reach. I will continue to monitor.
[2019-11-10] MEDS ORDERED: BUDESONIDE/FORMOTEROL 160-4.5 mCg, 6 GM INHALER INH SCH (21:00)
[2019-11-10] MEDS ORDERED: INSULIN GLARGINE 100 UNITS/ML 10 ML VIAL SUBCUT SCH (21:00)
[2019-11-10] MEDS: INSULIN GLARGINE 100 UNITS/ML 10 ML VIAL SUBCUT SCH (21:00)
[2019-11-10] MEDS: AMIODARONE HCL 200 MG TABLET PO SCH (21:18)
[2019-11-10] MEDS: ATORVASTATIN 20 MG TABLET PO SCH (21:20)
[2019-11-10] MEDS: APIXABAN 2.5 MG TABLET PO SCH (21:20)
[2019-11-10] MEDS: TIMOLOL MALEATE 0.5% OPHTHALMIC DROPS 5 ML EACH EYE SCH (21:56)
[2019-11-11] VITALS: BP_SYST 138
--- NOTE | 2019-11-11 00:01 | NUR ---
Pt assisted to the bathroom and back to bed. Instructed pt don't get up without calling for assistance. Bed in low position with call light at bedside. Bed alarm on. No other needs at this time. Monitoring is on going.
[2019-11-11] MEDS: ALBUTEROL SULFATE 0.083% 2.5 MG/3 ML VIAL.NEB INH SCH ×4 (01:00→20:01)
[2019-11-11] MEDS: IPRATROPIUM BROM 0.5 MG/2.5 ML VIAL.NEB (ATROVENT) INH SCH ×4 (01:00→20:00)
[2019-11-11 04:00] VITALS: BP_SYST 108
--- NOTE | 2019-11-11 04:01 | NUR ---
Pt is awoke called for bathroom assistance, and did received, afterward pt was assisted back to bed V/S taken, bed in low position with wheels locked call light in reach. No other needs at this time. Continued to monitor.
[2019-11-11] MEDS: D5W 1,000 ML IV SCH ×3 (06:00→20:08)
[2019-11-11 06:07] LABS: BASOPHILS % (AUTO) 0.4 % (0.0-2.0); EOSINOPHILS # (AUTO) 0.1 K/uL (0.0-0.4); EOSINOPHILS % (AUTO) 2.8 % (0.0-4.0); HEMATOCRIT 28.6 % (36-54); HEMOGLOBIN 9.8 g/dL (14.0-18.0); LYMPHOCYTES # (AUTO) 1.7 K/uL (1.0-5.5); LYMPHOCYTES % (AUTO) 37.8 % (20.5-51.5); MEAN CORPUSCULAR HEMOGLOBIN 34 pg (27-31); MEAN CORPUSCULAR HGB CONC 34 % (32-36); MEAN CORPUSCULAR VOLUME 99 fL (79.0-98.0); MONOCYTES # (AUTO) 0.4 K/uL (0.0-1.0); MONOCYTES % (AUTO) 9.5 % (1.7-9.3); NEUTROPHILS # (AUTO) 2.3 K/uL (1.8-7.7); NEUTROPHILS % (AUTO) 49.5 % (40.0-70.0); PLATELET COUNT (AUTO) 130 K/uL (130-430); RED BLOOD CELL COUNT(AUTO) 2.91 MIL/uL (4.2-6.2); RED CELL DISTRIBUTION WIDTH 18.2 % (9.0-15.0); WHITE BLOOD COUNT (AUTO) 4.6 K/uL (4.8-10.8)
[2019-11-11 06:32] LABS: ALANINE AMINOTRANSFERASE 29 U/L (12-78); ALBUMIN 2.6 g/dL (3.4-4.8); ANION GAP 6 (5-15); ASPARTATE AMINOTRANSFERASE 19 U/L (10-37); CALCIUM 8.2 mg/dL (8.4-11.0); CHLORIDE 105 mmol/L (98-107); CREATININE 1.34 mg/dL (0.55-1.30); GLUCOSE 124 mg/dL (70-99); PHOSPHORUS 3.4 mg/dL (2.7-4.5); POTASSIUM 4.2 mmol/L (3.5-5.1); SODIUM SERUM 138 mmol/L (136-145); THYROID STIMULATING HORMONE 7.49 uIu/mL (0.36-3.74); TOTAL BILIRUBIN 0.7 mg/dL (0.0-1.0); UREA NITROGEN, BLOOD 13 mg/dL (8-21)
--- NOTE | 2019-11-11 07:10 | NUR ---
opening note received bedside sbar, from night RN, patient in bed awake, alert, respirations even non labored, bed in low and locked position, call light within reach, bed alarm on
--- NOTE | 2019-11-11 07:12 | NUR ---
Pt is awoke in bed watching T.V. no s/s of discomfort, endorsed to day shift nurse. Pt's blood sugar 102 no coverage needed
[2019-11-11] MEDS: BUDESONIDE 0.5 MG/2 ML AMPUL.NEB INH SCH ×2 (07:32→20:01)
[2019-11-11 08:00] VITALS: BP_SYST 143
[2019-11-11] MEDS: PANTOPRAZOLE SODIUM 40 MG TAB PO SCH (08:23)
[2019-11-11] MEDS: FUROSEMIDE 40 MG TABLET PO SCH (08:24)
[2019-11-11] MEDS: metFORMIN HCL 500 MG TABLET PO SCH ×2 (08:25→17:35)
[2019-11-11] MEDS: AMIODARONE HCL 200 MG TABLET PO SCH ×2 (08:25→21:33)
[2019-11-11] MEDS: TIMOLOL MALEATE 0.5% OPHTHALMIC DROPS 5 ML EACH EYE SCH ×2 (08:26→21:33)
[2019-11-11] MEDS: CYANOCOBALAMIN 1000 mCg TABLET PO SCH (08:26)
[2019-11-11] MEDS: CHOLECALCIFEROL (VITAMIN D3) 2,000 UNIT TABLET PO SCH (08:27)
[2019-11-11] MEDS: APIXABAN 2.5 MG TABLET PO SCH ×2 (08:28→21:37)
--- NOTE | 2019-11-11 08:55 | NUR ---
md rounds Dr. Johnson bedside examining patient
--- NOTE | 2019-11-11 10:18 | NUR ---
Nutrition Update Edgar Scale 18 noted. Pt admitted for hyperglycemia. Diet: Standard carb 60, Cardiac BMI: 28.9 kg/m2 RD to follow per nutrition care standards.
--- NOTE | 2019-11-11 11:20 | NUR ---
md rounds Dr. Gómez bedside examining patient
--- NOTE | 2019-11-11 11:50 | NUR ---
F/U CONSULT ENDOCRINOLOGY HYPOGLYCEMIA/DM SUE BARRERA [phone] S/W GLENN EXCHANGE
--- NOTE | 2019-11-11 11:59 | NUR ---
CONSULT HEMATOLOGY ANEMIA DR WEEKS [phone] S/W ZOYA EXCHANGE
[2019-11-11 12:00] VITALS: BP_SYST 150
--- NOTE | 2019-11-11 12:00 | NUR ---
CONSULT GI ANEMIA DR EASLEY, DR COOLEY PROFESSOR OF GEOLOGY S/W BEATRICE EXCHANGE
--- NOTE | 2019-11-11 14:45 | NUR ---
nurse note assisted patient to ambulate to the bathroom, voided, ambulated to bed, no distress noted, bed alarm on, bed in low and locked position
[2019-11-11 16:00] VITALS: BP_SYST 125
[2019-11-11] MEDS: INSULIN REGULAR, HUMAN 100 UNITS/ML, 10 ML VIAL (humuLIN R) SUBCUT PRN ×2 (17:33→23:35)
[2019-11-11] MEDS: LATANOPROST 2.5 ML DROPS (XALATAN) OP SCH (17:34)
--- NOTE | 2019-11-11 18:00 | NUR ---
nurse note patient in bed, eating dinner, bed in low and locked position, call light within reach, no signs of distress noted, bed alarm on
[2019-11-11 19:11] LABS: BILIRUBIN,URINE NEGATIVE (NEGATIVE); BLOOD, URINE 1+ (NEGATIVE); CLARITY/URINE CLEAR (CLEAR); COLOR,URINE YELLOW (YELLOW); GLUCOSE,URINE NEGATIVE (NEGATIVE); KETONES,URINE NEGATIVE (NEGATIVE); LEUKOCYTE ESTERASE ,URINE NEGATIVE (NEGATIVE); NITRITE, URINE NEGATIVE (NEGATIVE); PROTEIN URINE NEGATIVE (NEGATIVE); UROBILINOGEN,URINE 0.2 (0.2-1.0)
--- NOTE | 2019-11-11 19:18 | NUR ---
closing note bedside sbar given to night RN, patient in bed, watching TV, respirations even, non labored, bed in low and locked position, call light within reach, bed alarm on, endorsed care to night RN
[2019-11-11 19:32] LABS: BACTERIA,URINE FEW /HPF (None Seen); MUCUS,URINE None Seen /LPF (None Seen); RBC,URINE NONE SEEN /HPF (0-3); WBC,URINE NONE SEEN /HPF (0-3)
--- NOTE | 2019-11-11 19:35 | NUR ---
initial notes: pt is in bed, alert, awake, oriented x 4. watching tv. no pain, no sob, stable. ivf infusing to left forearm gauge 20 intact and patent. no sign of infiltration. explain plan of care and safety. needs attended, call light in reach. bed lock on, safety precaution in place. will follow up,.
[2019-11-11 20:00] VITALS: BP_SYST 154
[2019-11-11] MEDS: ATORVASTATIN 20 MG TABLET PO SCH (21:32)
[2019-11-11] MEDS: INSULIN GLARGINE 100 UNITS/ML 10 ML VIAL SUBCUT SCH (21:36)
--- NOTE | 2019-11-11 22:15 | NUR ---
pt ambulate to bathroom, back to be, stable, needs attended. call light in reach. will follow-up.
[2019-11-12] VITALS: BP_SYST 122
--- NOTE | 2019-11-12 | NUR ---
pt is resting, wakes up. no pain, stable vital sign, needs attended. osmani light in reach. will follow-up.
[2019-11-12] MEDS: IPRATROPIUM BROM 0.5 MG/2.5 ML VIAL.NEB (ATROVENT) INH SCH ×3 (01:00→13:00)
[2019-11-12] MEDS: ALBUTEROL SULFATE 0.083% 2.5 MG/3 ML VIAL.NEB INH SCH ×3 (01:00→13:00)
--- NOTE | 2019-11-12 02:04 | NUR ---
sleeping, comfortable. no pain, no sob, stable. call light in reach. safety precaution in place. will follow-up.
--- NOTE | 2019-11-12 04:14 | NUR ---
sleeping, comfortable. no pain, no sob, stable. call light in reach. safety precaution in place. will follow-up.
--- NOTE | 2019-11-12 06:00 | NUR ---
resting, wakes up. no pain, stable. blood sugar 128, no coverage. needs attended. osmani light in reach. will follow-up.
[2019-11-12] MEDS: D5W 1,000 ML IV SCH (06:01)
--- NOTE | 2019-11-12 06:54 | NUR ---
closing: sleeping, comfortable. no pain, stable. ambulatory with steady gait. needs attended the whole shift. call light in reach. safety precaution in place. will give bedside report to am rn.
[2019-11-12 07:26] LABS: ANION GAP 6 (5-15); CALCIUM 8.4 mg/dL (8.4-11.0); CHLORIDE 104 mmol/L (98-107); CREATININE 1.54 mg/dL (0.55-1.30); GLUCOSE 120 mg/dL (70-99); POTASSIUM 3.9 mmol/L (3.5-5.1); SODIUM SERUM 138 mmol/L (136-145); UREA NITROGEN, BLOOD 13 mg/dL (8-21)
[2019-11-12 07:33] LABS: BASOPHILS % (AUTO) 0.5 % (0.0-2.0); EOSINOPHILS # (AUTO) 0.1 K/uL (0.0-0.4); EOSINOPHILS % (AUTO) 2.9 % (0.0-4.0); HEMATOCRIT 29.1 % (36-54); LYMPHOCYTES # (AUTO) 1.4 K/uL (1.0-5.5); LYMPHOCYTES % (AUTO) 32.1 % (20.5-51.5); MEAN CORPUSCULAR HEMOGLOBIN 34 pg (27-31); MEAN CORPUSCULAR HGB CONC 34 % (32-36); MEAN CORPUSCULAR VOLUME 98 fL (79.0-98.0); MONOCYTES # (AUTO) 0.3 K/uL (0.0-1.0); MONOCYTES % (AUTO) 7.8 % (1.7-9.3); NEUTROPHILS # (AUTO) 2.5 K/uL (1.8-7.7); NEUTROPHILS % (AUTO) 56.7 % (40.0-70.0); PLATELET COUNT (AUTO) 133 K/uL (130-430); RED BLOOD CELL COUNT(AUTO) 2.96 MIL/uL (4.2-6.2); RED CELL DISTRIBUTION WIDTH 17.7 % (9.0-15.0); WHITE BLOOD COUNT (AUTO) 4.4 K/uL (4.8-10.8)
[2019-11-12] MEDS: BUDESONIDE 0.5 MG/2 ML AMPUL.NEB INH SCH (07:53)
--- NOTE | 2019-11-12 07:55 | NUR ---
INITIAL NOTE RECEIVED PT IN BED, NO S/S OF DISTRESS OR SOB NOTED, PT HAS NO C/O PAIN AT THIS TIME, PT IN STABLE CONDITION. PT AAOX4, VERBAL. IV CATHETER PATENT, NO SIGNS OF INFECTION OR INFILTRATION NOTES, RUNNING IV FLUIDS ORDERED. BED AT LOWEST POSITION, CALL LIGHT WITHIN REACH, WILL CONTINUE TO MONITOR PT FOR ANY CHANGES, FALL, SAFETY PRECAUTIONS IN PLACE.
[2019-11-12] MEDS: metFORMIN HCL 500 MG TABLET PO SCH (08:38)
[2019-11-12] MEDS: TIMOLOL MALEATE 0.5% OPHTHALMIC DROPS 5 ML EACH EYE SCH (08:38)
[2019-11-12] MEDS: CHOLECALCIFEROL (VITAMIN D3) 2,000 UNIT TABLET PO SCH (08:38)
[2019-11-12] MEDS: AMIODARONE HCL 200 MG TABLET PO SCH (08:39)
[2019-11-12] MEDS: FUROSEMIDE 40 MG TABLET PO SCH (08:39)
[2019-11-12] MEDS: PANTOPRAZOLE SODIUM 40 MG TAB PO SCH (08:39)
[2019-11-12] MEDS: CYANOCOBALAMIN 1000 mCg TABLET PO SCH (08:39)
[2019-11-12] MEDS: APIXABAN 2.5 MG TABLET PO SCH (08:43)
[2019-11-12 08:45] VITALS: BP_SYST 160
--- NOTE | 2019-11-12 10:20 | NUR ---
ROUNDS PT IN BED, NO S/S OF DISTRESS OR SOB NOTED, PT HAS NO C/O PAIN AT THIS TIME, PT IN STABLE CONDITION, PT RESTING COMFORTABLY, WILL CONTINUE TO MONITOR PT FOR ANY CHANGES.
[2019-11-12 10:25] LABS: TOTAL IRON BIND. CAPACITY 199 ug/dL (250-450)
--- NOTE | 2019-11-12 11:30 | NUR ---
MD ROUNDS DR CATINA MALONE, MADE AWARE OF PATIENT'S CONDITION, MD MADE AWARE THAT DR ANDRES DOES NOT KNOW WHY HE IS BEING CONSULTED FOR GI, PER MD FOR ANEMIA.
[2019-11-12 11:33] VITALS: BP_SYST 126
[2019-11-12] MEDS ORDERED: INSU100I20 SQ (11:42)
[2019-11-12] MEDS ORDERED: GLU500 PO (11:42)
[2019-11-12 13:04] VITALS: BP_SYST 124
[2019-11-13 08:06] LABS: FOLATE (FOLIC ACID) 10.8 ng/mL (>3.0)
--- NOTE | 2019-11-13 14:52 | NUR ---
SS NOTES/DISCHARGE FOLLOW UP CALL: GLOBAL SALES EXECUTIVE spoke with patient who appears to be doing well. Pt stated he is "doing well" and understood the instructions that were given. pt also stated there were no new medication and has an appointment with his PCP on 11/19. Pt understood to bring discharge instructions when going to the doctor and understood on what to look out for and when to bring self back to ED. GLOBAL SALES EXECUTIVE offered for a workers compensation administrator to do a follow up call, but pt refused. No further call needed at this time.
== END 2019-11-12 14:30 | disposition home or self-care (01) | DRG 637 ==
LOC: SED 09:03 → STU 10:00 → EEVIPCON 10:00 → STU 10:41 → SMU 11-11 11:41
PROVIDERS: ADMIT Preventive Medicine Preventive Medicine/Occupational Environmental Medicine; ATTEND Preventive Medicine Preventive Medicine/Occupational Environmental Medicine
DX: E11.649 Type 2 diabetes mellitus with hypoglycemia without coma (principal); E43 Unspecified severe protein-calorie malnutrition; I13.0 Hypertensive heart and chronic kidney disease with heart failure and stage 1 through stage 4 chronic kidney disease, or unspecified chronic kidney disease; I50.40 Unspecified combined systolic (congestive) and diastolic (congestive) heart failure; D63.8 Anemia in other chronic diseases classified elsewhere; D72.819 Decreased white blood cell count, unspecified; E11.22 Type 2 diabetes mellitus with diabetic chronic kidney disease; E11.65 Type 2 diabetes mellitus with hyperglycemia; E55.9 Vitamin D deficiency, unspecified; E78.5 Hyperlipidemia, unspecified; T38.3X5A Adverse effect of insulin and oral hypoglycemic [antidiabetic] drugs, initial encounter; I27.81 Cor pulmonale (chronic); I48.0 Paroxysmal atrial fibrillation; J44.9 Chronic obstructive pulmonary disease, unspecified; K21.9 Gastro-esophageal reflux disease without esophagitis; N18.3 Chronic kidney disease, stage 3 (moderate); Z79.4 Long term (current) use of insulin; Z79.899 Other long term (current) drug therapy; Z87.891 Personal history of nicotine dependence; Z68.28 Body mass index [BMI] 28.0-28.9, adult; Y92.89 Other specified places as the place of occurrence of the external cause
CPT/HCPCS: 36415; 80048; 80053; 81000-TC; 82607; 82728; 82746; 82962; 83540-TC; 83550-TC; 83735-TC; 83880; 84100-TC; 84443-TC; 85025; 87081; 93005; 94640; 94760; 96374; 99285; G0378; J1815; J7042; J7060; J7613; J7626

== ENCOUNTER 2019-12-26 08:57 | Outpatient (CLI) | payer OTHER ==
[~2019-12-26 08:57] MED LIST changes: +GLU500 PO; +INSU100I20 SQ; -METF1000 PO
== END 2019-12-26 20:03 | disposition home or self-care (01) ==
LOC: SRD 08:57
PROVIDERS: ATTEND Family Medicine
DX: Z09 Encounter for follow-up examination after completed treatment for conditions other than malignant neoplasm (principal); J18.9 Pneumonia, unspecified organism
CPT/HCPCS: 71046-TC

== ENCOUNTER 2022-09-07 09:15 | Emergency (ER) | payer OTHER ==
[~2022-09-07] VITALS: Ht 172.7 cm; Wt 81.6 kg
[~2022-09-07 09:15] MED LIST changes: -CYAN100T3 PO; +CYAN100T44 PO; -INSU100I20 SQ; +INSU100I22 SQ
[2022-09-07 09:20] VITALS: BP_SYST 128
--- NOTE | 2022-09-07 09:25 | NUR ---
Patient to ER bed 6 to gown for evaluation. Side rails up. Report given to HARRY HUNT.
--- NOTE | 2022-09-07 09:26 | NUR ---
RECEIVED PT FROM MARILEE ANDRADE. PT TIMOTEO NAILS FOR HYPOGLYCEMIA. BS WAS 47, NEW READING SHOWS BS 77. PT GIVEN BREAKFAST TO EAT. PT IS AAOX4, LETHARGIC. ON R/A. DENIES N/V/D/C. DISTAL PULSES NORMAL, VSS. DENIES PAIN. SIDERAILS UP X2. Addendum: 09/07/22 at 0941 by [email or web address] PT HAS IV CATH TO RW 20G THAT WAS PLACED IN THE FIELD.
--- NOTE | 2022-09-07 09:26 | NUR ---
ER at bedside examining patient.
[2022-09-07 10:10] LABS: BASOPHILS % (AUTO) 0.1 % (0.0-2.0); EOSINOPHILS # (AUTO) 0.1 K/uL (0.0-0.4); EOSINOPHILS % (AUTO) 1.1 % (0.0-4.0); HEMATOCRIT 35.3 % (36-54); HEMOGLOBIN 11.9 g/dL (14.0-18.0); LYMPHOCYTES # (AUTO) 1.1 K/uL (1.0-5.5); LYMPHOCYTES % (AUTO) 10.8 % (20.5-51.5); MEAN CORPUSCULAR HEMOGLOBIN 35 pg (27-31); MEAN CORPUSCULAR HGB CONC 34 % (32-36); MEAN CORPUSCULAR VOLUME 104 fL (79.0-98.0); MONOCYTES # (AUTO) 0.4 K/uL (0.0-1.0); MONOCYTES % (AUTO) 4.4 % (1.7-9.3); NEUTROPHILS # (AUTO) 8.2 K/uL (1.8-7.7); NEUTROPHILS % (AUTO) 83.6 % (40.0-70.0); PLATELET COUNT (AUTO) 155 K/uL (130-430); RED BLOOD CELL COUNT(AUTO) 3.39 MIL/uL (4.2-6.2); RED CELL DISTRIBUTION WIDTH 14.3 % (9.0-15.0); WHITE BLOOD COUNT (AUTO) 9.8 K/uL (4.8-10.8)
[2022-09-07 10:21] LABS: ANION GAP 5 (5-15); CALCIUM 8.4 mg/dL (8.4-11.0); CHLORIDE 109 mmol/L (98-107); CREATININE 1.48 mg/dL (0.55-1.30); GLUCOSE 54 mg/dL (70-99); UREA NITROGEN, BLOOD 28 mg/dL (8-21)
[2022-09-07 10:26] LABS: ALANINE AMINOTRANSFERASE 184 U/L (12-78); ALBUMIN 2.4 g/dL (3.4-4.8); ASPARTATE AMINOTRANSFERASE 91 U/L (10-37); TOTAL BILIRUBIN 0.6 mg/dL (0.0-1.0)
--- NOTE | 2022-09-07 10:27 | NUR ---
EKG OBTAINED AND GIVEN TO DR. BENOIT. BS 67. PT GIVEN APPLE JUICE WILL CONTINUE TO MONITOR.
--- NOTE | 2022-09-07 13:20 | NUR ---
DR. BENOIT AT BEDSIDE TO ASSESS PT.
[2022-09-07 13:49] VITALS: BP_SYST 125
--- NOTE | 2022-09-07 13:51 | NUR ---
Patient given written and verbal discharge instructions and verbalizes understanding. ER MD discussed with patient the results and treatment provided. Patient in stable condition. ID arm band removed. IV catheter removed intact and dressing applied, no active bleeding. Patient educated on pain management and to follow up with PMD. Pain Scale . Opportunity for questions provided and answered. Medication side effect fact sheet provided.
== END 2022-09-07 13:47 | disposition home or self-care (01) ==
LOC: SED 09:15
DX: E16.2 Hypoglycemia, unspecified (principal); Z79.899 Other long term (current) drug therapy
CPT/HCPCS: 36415; 71045; 80053; 82962; 85025; 93005; 99285

== ENCOUNTER 2022-09-20 14:06 | Inpatient (IN) | payer OTHER ==
[~2022-09-20] VITALS: Ht 172.7 cm; Wt 79.4 kg
[2022-09-20 14:12] VITALS: BP_SYST 149
[2022-09-20] MEDS ORDERED: LEVO75CA5 PO (14:27)
[2022-09-20] MEDS ORDERED: MULT-1198 PO (14:27)
[2022-09-20] MEDS ORDERED: FLUT1BLS5 PO (14:27)
[2022-09-20] MEDS ORDERED: VITA-285 PO (14:27)
[2022-09-20] MEDS ORDERED: DORZ10DR20 OP (14:27)
[2022-09-20] MEDS ORDERED: LINA5TAB2 PO (14:27)
[2022-09-20] MEDS ORDERED: ASPI-524 PO (14:27)
[2022-09-20] MEDS ORDERED: FERR325T30 PO (14:27)
[2022-09-20] MEDS ORDERED: LISI20TA PO (14:27)
[2022-09-20] MEDS ORDERED: FURO-150 PO (14:27)
[2022-09-20] MEDS ORDERED: CARV6.2554 PO (14:27)
[2022-09-20] MEDS ORDERED: MORPHINE 2 MG/ML INJ. SYRINGE IVP ONE (17:45)
[2022-09-20 18:43] LABS: BILIRUBIN,URINE NEGATIVE (NEGATIVE); BLOOD, URINE 3+ (NEGATIVE); COLOR,URINE GREEN (YELLOW); GLUCOSE,URINE NEGATIVE (NEGATIVE); KETONES,URINE NEGATIVE (NEGATIVE); LEUKOCYTE ESTERASE ,URINE NEGATIVE (NEGATIVE); NITRITE, URINE NEGATIVE (NEGATIVE); PROTEIN URINE 1+ (NEGATIVE); UROBILINOGEN,URINE 0.2 (0.2-1.0)
[2022-09-20] MEDS ORDERED: D5/0.45 NS 1,000 ML IV ONE (18:45)
[2022-09-20 18:49] LABS: CLARITY/URINE HAZY (CLEAR)
[2022-09-20 18:59] LABS: BACTERIA,URINE None Seen /HPF (None Seen); HYALINE CASTS, URINE 0-10 /LPF (None Seen); MUCUS,URINE 1+ /LPF (None Seen); RBC,URINE >100 /HPF (0-3)
[2022-09-20 20:55] VITALS: BP_SYST 107
[2022-09-20 21:41] LABS: BASOPHILS % (AUTO) 0.4 % (0.0-2.0); EOSINOPHILS # (AUTO) 0.1 K/uL (0.0-0.4); EOSINOPHILS % (AUTO) 1.1 % (0.0-4.0); HEMATOCRIT 29.9 % (36-54); HEMOGLOBIN 10.2 g/dL (14.0-18.0); LYMPHOCYTES % (AUTO) 16.2 % (20.5-51.5); MEAN CORPUSCULAR HEMOGLOBIN 36 pg (27-31); MEAN CORPUSCULAR HGB CONC 34 % (32-36); MEAN CORPUSCULAR VOLUME 105 fL (79.0-98.0); MONOCYTES # (AUTO) 0.5 K/uL (0.0-1.0); MONOCYTES % (AUTO) 7.6 % (1.7-9.3); NEUTROPHILS # (AUTO) 4.6 K/uL (1.8-7.7); NEUTROPHILS % (AUTO) 74.7 % (40.0-70.0); PLATELET COUNT (AUTO) 136 K/uL (130-430); RED BLOOD CELL COUNT(AUTO) 2.85 MIL/uL (4.2-6.2); RED CELL DISTRIBUTION WIDTH 15.6 % (9.0-15.0); WHITE BLOOD COUNT (AUTO) 6.2 K/uL (4.8-10.8)
[2022-09-20 21:57] LABS: ANION GAP 8 (5-15); CALCIUM 8.2 mg/dL (8.4-11.0); CHLORIDE 104 mmol/L (98-107); CREATININE 1.56 mg/dL (0.55-1.30); GLUCOSE 227 mg/dL (70-99); UREA NITROGEN, BLOOD 17 mg/dL (8-21)
[2022-09-20 22:05] LABS: ALANINE AMINOTRANSFERASE 121 U/L (12-78); ALBUMIN 2.7 g/dL (3.4-4.8); ASPARTATE AMINOTRANSFERASE 78 U/L (10-37); INR 1.3 (0.80-1.20); PROTHROMBIN TIME 13.6 SECS (9.5-12.5); TOTAL BILIRUBIN 0.8 mg/dL (0.0-1.0)
[2022-09-20] MEDS ORDERED: INSULIN REGULAR, HUMAN 100 UNITS/ML, 3 ML VIAL (humuLIN R) SUBCUT PRN (22:15)
[2022-09-20] MEDS ORDERED: D5/0.45 NS 1,000 ML IV SCH (22:45)
[2022-09-20] MEDS ORDERED: ACETAMINOPHEN 325 MG TABLET PO PRN (22:45)
[2022-09-20] MEDS ORDERED: NALOXONE HCL 0.4 MG/ML AMP (NARCAN) IVP PRN ×2 (22:45)
[2022-09-20 23:14] VITALS: BP_SYST 107
[2022-09-20] MEDS: INSULIN REGULAR, HUMAN 100 UNITS/ML, 3 ML VIAL (humuLIN R) SUBCUT PRN (23:41)
[2022-09-20] MEDS ORDERED: ONDANSETRON HCL 4 MG/2 ML VIAL IVP PRN (23:45)
[2022-09-21 01:00] VITALS: BP_SYST 112
[2022-09-21] MEDS: HYDROcodone/ACETAMIN 10-325 MG TAB PO PRN ×2 (05:36→07:20)
[2022-09-21] MEDS: INSULIN REGULAR, HUMAN 100 UNITS/ML, 3 ML VIAL (humuLIN R) SUBCUT PRN (05:44)
[2022-09-21 05:51] LABS: BASOPHILS % (AUTO) 0.4 % (0.0-2.0); EOSINOPHILS # (AUTO) 0.1 K/uL (0.0-0.4); HEMATOCRIT 27.2 % (36-54); HEMOGLOBIN 9.5 g/dL (14.0-18.0); LYMPHOCYTES # (AUTO) 1.2 K/uL (1.0-5.5); LYMPHOCYTES % (AUTO) 22.7 % (20.5-51.5); MEAN CORPUSCULAR HEMOGLOBIN 36 pg (27-31); MEAN CORPUSCULAR HGB CONC 35 % (32-36); MEAN CORPUSCULAR VOLUME 103 fL (79.0-98.0); MONOCYTES # (AUTO) 0.4 K/uL (0.0-1.0); MONOCYTES % (AUTO) 7.7 % (1.7-9.3); NEUTROPHILS # (AUTO) 3.4 K/uL (1.8-7.7); NEUTROPHILS % (AUTO) 67.2 % (40.0-70.0); PLATELET COUNT (AUTO) 122 K/uL (130-430); RED BLOOD CELL COUNT(AUTO) 2.63 MIL/uL (4.2-6.2); RED CELL DISTRIBUTION WIDTH 15.5 % (9.0-15.0); WHITE BLOOD COUNT (AUTO) 5.1 K/uL (4.8-10.8)
[2022-09-21 06:19] LABS: ALANINE AMINOTRANSFERASE 77 U/L (12-78); ALBUMIN 2.4 g/dL (3.4-4.8); ANION GAP 8 (5-15); ASPARTATE AMINOTRANSFERASE 59 U/L (10-37); CALCIUM 8.1 mg/dL (8.4-11.0); CHLORIDE 106 mmol/L (98-107); CREATININE 1.29 mg/dL (0.55-1.30); GLUCOSE 146 mg/dL (70-99); PHOSPHORUS 3.8 mg/dL (2.7-4.5); TOTAL BILIRUBIN 0.7 mg/dL (0.0-1.0); UREA NITROGEN, BLOOD 16 mg/dL (8-21)
[2022-09-21] MEDS: LEVOTHYROXINE SODIUM 0.075 MG TABLET PO SCH (07:00)
[2022-09-21 08:00] VITALS: BP_SYST 105
[2022-09-21] MEDS: metFORMIN HCL 500 MG TABLET PO SCH ×2 (08:00→17:37)
[2022-09-21] MEDS ORDERED: ASPIRIN 81 MG TAB.CHEW PO SCH (09:00)
[2022-09-21] MEDS: TIMOLOL MALEATE 0.5% OPHTHALMIC DROPS 5 ML EACH EYE SCH (09:00)
[2022-09-21] MEDS: PANTOPRAZOLE SODIUM 40 MG TAB PO SCH (09:00)
[2022-09-21] MEDS ORDERED: FUROSEMIDE 20 MG TABLET PO SCH (09:00)
[2022-09-21] MEDS: CYANOCOBALAMIN (VITAMIN B-12) 1,000 MCG TABLET PO SCH (09:00)
[2022-09-21] MEDS: CARVEDILOL 6.25 MG TABLET (COREG) PO SCH ×2 (09:00→21:49)
[2022-09-21] MEDS ORDERED: NON-FORMULARY MEDICATION (Fluticasone/Umeclidin/Vilanter (Trelegy Ellipta 100-62.5-25) 1 P INH SCH (09:00)
[2022-09-21] MEDS: MULTIVITS,CA,MINERALS/IRON/FA 1 TABLET PO SCH (09:00)
[2022-09-21] MEDS ORDERED: AMIODARONE HCL 200 MG TABLET PO SCH (09:00)
[2022-09-21] MEDS: VITAMIN B COMPLEX 1 CAP/TAB PO SCH (09:00)
[2022-09-21] MEDS: CHOLECALCIFEROL (VITAMIN D3) 2,000 UNIT TABLET PO SCH (09:00)
[2022-09-21] MEDS: DORZOLAMIDE 2% OPHTHALMIC SOLN 5ML OP SCH ×2 (09:00→21:53)
[2022-09-21 11:31] VITALS: BP_SYST 108
[2022-09-21] MEDS: HYDROcodone/ACETAMIN 5-325 MG TAB (NORCO/ VICODIN) PO PRN (13:23)
[2022-09-21 15:37] VITALS: BP_SYST 95
[2022-09-21] MEDS: LATANOPROST 2.5 ML DROPS (XALATAN) OP SCH (17:57)
[2022-09-21 18:23] VITALS: BP_SYST 95
[2022-09-21 20:00] VITALS: BP_SYST 99
[2022-09-21] MEDS: INSULIN GLARGINE 100 UNITS/ML, 10 ML VIAL SUBCUT SCH (21:00)
[2022-09-21] MEDS ORDERED: INSULIN DETEMIR 30 UNIT SQ SCH (21:00)
[2022-09-21] MEDS: ATORVASTATIN 20 MG TABLET PO SCH (21:59)
[2022-09-21] MEDS: lisinopriL 20 MG TABLET PO SCH (22:00)
[2022-09-22] VITALS: BP_SYST 111
[2022-09-22 05:50] LABS: BASOPHILS % (AUTO) 0.5 % (0.0-2.0); EOSINOPHILS # (AUTO) 0.1 K/uL (0.0-0.4); EOSINOPHILS % (AUTO) 3.2 % (0.0-4.0); HEMATOCRIT 26.1 % (36-54); HEMOGLOBIN 9.1 g/dL (14.0-18.0); LYMPHOCYTES % (AUTO) 21.3 % (20.5-51.5); MEAN CORPUSCULAR HEMOGLOBIN 36 pg (27-31); MEAN CORPUSCULAR HGB CONC 35 % (32-36); MEAN CORPUSCULAR VOLUME 103 fL (79.0-98.0); MONOCYTES # (AUTO) 0.4 K/uL (0.0-1.0); MONOCYTES % (AUTO) 9.1 % (1.7-9.3); NEUTROPHILS # (AUTO) 3.1 K/uL (1.8-7.7); NEUTROPHILS % (AUTO) 65.9 % (40.0-70.0); PLATELET COUNT (AUTO) 120 K/uL (130-430); RED BLOOD CELL COUNT(AUTO) 2.54 MIL/uL (4.2-6.2); RED CELL DISTRIBUTION WIDTH 15.1 % (9.0-15.0); WHITE BLOOD COUNT (AUTO) 4.7 K/uL (4.8-10.8)
[2022-09-22 06:17] LABS: ANION GAP 8 (5-15); CALCIUM 8.1 mg/dL (8.4-11.0); CHLORIDE 105 mmol/L (98-107); CREATININE 1.34 mg/dL (0.55-1.30); GLUCOSE 139 mg/dL (70-99); UREA NITROGEN, BLOOD 16 mg/dL (8-21)
[2022-09-22] MEDS: LEVOTHYROXINE SODIUM 0.075 MG TABLET PO SCH (07:00)
[2022-09-22] MEDS: metFORMIN HCL 500 MG TABLET PO SCH ×2 (08:00→18:00)
[2022-09-22] MEDS: VITAMIN B COMPLEX 1 CAP/TAB PO SCH (09:00)
[2022-09-22] MEDS: CARVEDILOL 6.25 MG TABLET (COREG) PO SCH ×2 (09:00→21:32)
[2022-09-22] MEDS: MULTIVITS,CA,MINERALS/IRON/FA 1 TABLET PO SCH (09:00)
[2022-09-22] MEDS: CYANOCOBALAMIN (VITAMIN B-12) 1,000 MCG TABLET PO SCH (09:00)
[2022-09-22] MEDS: FERROUS SULFATE 325 MG TABLET.DR PO SCH (09:00)
[2022-09-22] MEDS: PANTOPRAZOLE SODIUM 40 MG TAB PO SCH (09:00)
[2022-09-22] MEDS: TAMSULOSIN HCL 0.4 MG CAP PO SCH (09:00)
[2022-09-22] MEDS: CHOLECALCIFEROL (VITAMIN D3) 2,000 UNIT TABLET PO SCH (09:00)
[2022-09-22 11:34] VITALS: BP_SYST 117
[2022-09-22] MEDS: DORZOLAMIDE 2% OPHTHALMIC SOLN 5ML OP SCH ×2 (12:28→21:30)
[2022-09-22] MEDS: TIMOLOL MALEATE 0.5% OPHTHALMIC DROPS 5 ML EACH EYE SCH (12:29)
[2022-09-22 15:43] VITALS: BP_SYST 122
[2022-09-22 16:11] VITALS: BP_SYST 130
[2022-09-22 16:19] LABS: INR 1.2 (0.80-1.20); PROTHROMBIN TIME 12.4 SECS (9.5-12.5)
[2022-09-22] MEDS ORDERED: METOCLOPRAMIDE HCL 10 MG/2 ML VIAL IVP PRN (17:15)
[2022-09-22] MEDS ORDERED: ONDANSETRON HCL 4 MG/2 ML VIAL IVP PRN (17:15)
[2022-09-22] MEDS ORDERED: fentaNYL CITRATE/PF 100 MCG/2 ML AMP IVP PRN ×2 (17:15)
[2022-09-22] MEDS: LATANOPROST 2.5 ML DROPS (XALATAN) OP SCH (18:00)
[2022-09-22] MEDS ORDERED: NS 1000 ML IV.SOLN IV ONE (18:40)
[2022-09-22] MEDS ORDERED: NS IRRIG SOLN 1000 ML IR ONE (18:40)
[2022-09-22] MEDS ORDERED: BUPIVACAINE /PF 0.75% 10 ML VIAL INJ ONE (18:40)
[2022-09-22] MEDS ORDERED: fentaNYL CITRATE/PF 100 MCG/2 ML AMP ONE (19:38)
[2022-09-22] MEDS: ATORVASTATIN 20 MG TABLET PO SCH (21:31)
[2022-09-22] MEDS: lisinopriL 20 MG TABLET PO SCH (21:32)
[2022-09-22] MEDS: INSULIN GLARGINE 100 UNITS/ML, 10 ML VIAL SUBCUT SCH (22:28)
[2022-09-22] MEDS: ceFAZolin SODIUM 2 GM in D5W 100 ML IV SCH (22:28)
[2022-09-22] MEDS: HYDROcodone/ACETAMIN 5-325 MG TAB (NORCO/ VICODIN) PO PRN (22:47)
[2022-09-23] VITALS (12 sets, daily range): BP systolic 77–123
[2022-09-23] MEDS: ceFAZolin SODIUM 2 GM in D5W 100 ML IV SCH ×3 (05:35→21:45)
[2022-09-23] MEDS: INSULIN REGULAR, HUMAN 100 UNITS/ML, 3 ML VIAL (humuLIN R) SUBCUT PRN ×3 (05:42→21:51)
[2022-09-23 05:51] LABS: BASOPHILS % (AUTO) 0.3 % (0.0-2.0); EOSINOPHILS % (AUTO) 0.7 % (0.0-4.0); HEMATOCRIT 24.6 % (36-54); HEMOGLOBIN 8.5 g/dL (14.0-18.0); LYMPHOCYTES % (AUTO) 20.3 % (20.5-51.5); MEAN CORPUSCULAR HEMOGLOBIN 36 pg (27-31); MEAN CORPUSCULAR HGB CONC 35 % (32-36); MEAN CORPUSCULAR VOLUME 104 fL (79.0-98.0); MONOCYTES # (AUTO) 0.6 K/uL (0.0-1.0); MONOCYTES % (AUTO) 11.3 % (1.7-9.3); NEUTROPHILS # (AUTO) 3.5 K/uL (1.8-7.7); NEUTROPHILS % (AUTO) 67.4 % (40.0-70.0); PLATELET COUNT (AUTO) 106 K/uL (130-430); RED BLOOD CELL COUNT(AUTO) 2.36 MIL/uL (4.2-6.2); RED CELL DISTRIBUTION WIDTH 15.5 % (9.0-15.0); WHITE BLOOD COUNT (AUTO) 5.2 K/uL (4.8-10.8)
[2022-09-23 06:58] LABS: ANION GAP 8 (5-15); CALCIUM 7.9 mg/dL (8.4-11.0); CHLORIDE 104 mmol/L (98-107); CREATININE 1.42 mg/dL (0.55-1.30); GLUCOSE 167 mg/dL (70-99); UREA NITROGEN, BLOOD 18 mg/dL (8-21)
[2022-09-23] MEDS: LEVOTHYROXINE SODIUM 0.075 MG TABLET PO SCH (07:00)
[2022-09-23] MEDS: metFORMIN HCL 500 MG TABLET PO SCH ×2 (08:00→17:56)
[2022-09-23] MEDS: CARVEDILOL 6.25 MG TABLET (COREG) PO SCH ×2 (09:00→21:00)
[2022-09-23] MEDS: VITAMIN B COMPLEX 1 CAP/TAB PO SCH (09:00)
[2022-09-23] MEDS: TRELEGY ELLIPTA INH SCH (09:00)
[2022-09-23] MEDS: ASPIRIN 81 MG TABLET(ECOTRIN) PO SCH ×2 (09:56→21:47)
[2022-09-23] MEDS: CHOLECALCIFEROL (VITAMIN D3) 5,000 UNIT TABLET PO SCH (09:57)
[2022-09-23] MEDS: TAMSULOSIN HCL 0.4 MG CAP PO SCH (09:57)
[2022-09-23] MEDS: CYANOCOBALAMIN (VITAMIN B-12) 1,000 MCG TABLET PO SCH (09:57)
[2022-09-23] MEDS: PANTOPRAZOLE SODIUM 40 MG TAB PO SCH (09:57)
[2022-09-23] MEDS: MULTIVITS,CA,MINERALS/IRON/FA 1 TABLET PO SCH (09:57)
[2022-09-23] MEDS: DORZOLAMIDE 2% OPHTHALMIC SOLN 5ML OP SCH ×2 (10:00→22:03)
[2022-09-23] MEDS ORDERED: NS 500 ML IV ONE (10:00)
[2022-09-23] MEDS: TIMOLOL MALEATE 0.5% OPHTHALMIC DROPS 5 ML EACH EYE SCH (10:01)
[2022-09-23] MEDS: NACL 0.9% 1,000 ML IV SCH ×2 (10:03→22:16)
[2022-09-23] MEDS: HYDROcodone/ACETAMIN 5-325 MG TAB (NORCO/ VICODIN) PO PRN (12:08)
[2022-09-23] MEDS: LATANOPROST 2.5 ML DROPS (XALATAN) OP SCH (17:56)
[2022-09-23] MEDS: lisinopriL 20 MG TABLET PO SCH (21:00)
[2022-09-23] MEDS: ATORVASTATIN 20 MG TABLET PO SCH (21:47)
[2022-09-24] VITALS (8 sets, daily range): BP systolic 91–116
[2022-09-24] MEDS: ceFAZolin SODIUM 2 GM in D5W 100 ML IV SCH ×3 (05:35→22:13)
[2022-09-24 06:15] LABS: ANION GAP 9 (5-15); CALCIUM 7.7 mg/dL (8.4-11.0); CHLORIDE 106 mmol/L (98-107); CREATININE 1.44 mg/dL (0.55-1.30); GLUCOSE 106 mg/dL (70-99); UREA NITROGEN, BLOOD 19 mg/dL (8-21)
[2022-09-24] MEDS: LEVOTHYROXINE SODIUM 0.075 MG TABLET PO SCH (07:02)
[2022-09-24 08:04] LABS: BASOPHILS % (AUTO) 0.4 % (0.0-2.0); EOSINOPHILS # (AUTO) 0.1 K/uL (0.0-0.4); EOSINOPHILS % (AUTO) 3.1 % (0.0-4.0); LYMPHOCYTES # (AUTO) 0.8 K/uL (1.0-5.5); LYMPHOCYTES % (AUTO) 24.8 % (20.5-51.5); MEAN CORPUSCULAR HEMOGLOBIN 36 pg (27-31); MEAN CORPUSCULAR HGB CONC 35 % (32-36); MEAN CORPUSCULAR VOLUME 103 fL (79.0-98.0); MONOCYTES # (AUTO) 0.4 K/uL (0.0-1.0); MONOCYTES % (AUTO) 10.7 % (1.7-9.3); PLATELET COUNT (AUTO) 100 K/uL (130-430); RED CELL DISTRIBUTION WIDTH 15.3 % (9.0-15.0); WHITE BLOOD COUNT (AUTO) 3.3 K/uL (4.8-10.8)
[2022-09-24 08:26] LABS: RED BLOOD CELL COUNT(AUTO) 1.79 MIL/uL (4.2-6.2)
[2022-09-24 08:27] LABS: HEMOGLOBIN 6.4 g/dL (14.0-18.0)
[2022-09-24] MEDS: NACL 0.9% 1,000 ML IV SCH ×2 (08:27→17:29)
[2022-09-24 08:28] LABS: HEMATOCRIT 18.5 % (36-54)
[2022-09-24] MEDS: TRELEGY ELLIPTA INH SCH (08:29)
[2022-09-24] MEDS: MULTIVITS,CA,MINERALS/IRON/FA 1 TABLET PO SCH (08:33)
[2022-09-24] MEDS: PANTOPRAZOLE SODIUM 40 MG TAB PO SCH (08:33)
[2022-09-24] MEDS: CARVEDILOL 6.25 MG TABLET (COREG) PO SCH ×2 (08:34→21:00)
[2022-09-24] MEDS: metFORMIN HCL 500 MG TABLET PO SCH ×2 (08:34→17:29)
[2022-09-24] MEDS: TAMSULOSIN HCL 0.4 MG CAP PO SCH (08:35)
[2022-09-24] MEDS: ASPIRIN 81 MG TABLET(ECOTRIN) PO SCH (08:35)
[2022-09-24] MEDS: CYANOCOBALAMIN (VITAMIN B-12) 1,000 MCG TABLET PO SCH (08:35)
[2022-09-24] MEDS: CHOLECALCIFEROL (VITAMIN D3) 5,000 UNIT TABLET PO SCH (08:35)
[2022-09-24] MEDS: FERROUS SULFATE 325 MG TABLET.DR PO SCH (08:36)
[2022-09-24] MEDS: DORZOLAMIDE 2% OPHTHALMIC SOLN 5ML OP SCH ×2 (08:36→22:15)
[2022-09-24] MEDS: TIMOLOL MALEATE 0.5% OPHTHALMIC DROPS 5 ML EACH EYE SCH (08:37)
[2022-09-24] MEDS: VITAMIN B COMPLEX 1 CAP/TAB PO SCH (09:22)
[2022-09-24] MEDS ORDERED: LATANOPROST 2.5 ML DROPS (XALATAN) OP SCH (17:35)
[2022-09-24] MEDS ORDERED: COMMUNICATION ORDER XX ONE (17:45)
[2022-09-24] MEDS: lisinopriL 20 MG TABLET PO SCH (21:00)
[2022-09-24] MEDS ORDERED: INSULIN GLARGINE 100 UNITS/ML, 10 ML VIAL SUBCUT SCH (21:00)
[2022-09-24] MEDS: ATORVASTATIN 20 MG TABLET PO SCH (22:13)
[2022-09-25 00:37] VITALS: BP_SYST 113
[2022-09-25] MEDS: ceFAZolin SODIUM 2 GM in D5W 100 ML IV SCH (05:30)
[2022-09-25] MEDS: NACL 0.9% 1,000 ML IV SCH (05:31)
[2022-09-25 05:47] LABS: BASOPHILS % (AUTO) 0.5 % (0.0-2.0); EOSINOPHILS # (AUTO) 0.1 K/uL (0.0-0.4); EOSINOPHILS % (AUTO) 3.2 % (0.0-4.0); HEMOGLOBIN 7.5 g/dL (14.0-18.0); LYMPHOCYTES # (AUTO) 0.6 K/uL (1.0-5.5); LYMPHOCYTES % (AUTO) 20.9 % (20.5-51.5); MEAN CORPUSCULAR HEMOGLOBIN 35 pg (27-31); MEAN CORPUSCULAR HGB CONC 35 % (32-36); MEAN CORPUSCULAR VOLUME 99 fL (79.0-98.0); MONOCYTES # (AUTO) 0.3 K/uL (0.0-1.0); MONOCYTES % (AUTO) 10.9 % (1.7-9.3); NEUTROPHILS # (AUTO) 1.9 K/uL (1.8-7.7); NEUTROPHILS % (AUTO) 64.5 % (40.0-70.0); PLATELET COUNT (AUTO) 94 K/uL (130-430); RED BLOOD CELL COUNT(AUTO) 2.18 MIL/uL (4.2-6.2); RED CELL DISTRIBUTION WIDTH 17.5 % (9.0-15.0)
[2022-09-25 06:27] LABS: ALANINE AMINOTRANSFERASE 28 U/L (12-78); ALBUMIN 1.6 g/dL (3.4-4.8); ANION GAP 7 (5-15); ASPARTATE AMINOTRANSFERASE 79 U/L (10-37); C-REACTIVE PROTEIN QUANT 24.9 mg/dL (0-0.5); CALCIUM 7.9 mg/dL (8.4-11.0); CHLORIDE 106 mmol/L (98-107); CREATININE 1.35 mg/dL (0.55-1.30); GLUCOSE 138 mg/dL (70-99); PHOSPHORUS 2.7 mg/dL (2.7-4.5); TOTAL BILIRUBIN 0.6 mg/dL (0.0-1.0); UREA NITROGEN, BLOOD 19 mg/dL (8-21)
[2022-09-25] MEDS: LEVOTHYROXINE SODIUM 0.075 MG TABLET PO SCH (06:38)
[2022-09-25 08:00] VITALS: BP_SYST 97
[2022-09-25 08:06] LABS: FOLATE (FOLIC ACID) >20.0 ng/mL (>3.0)
[2022-09-25 08:07] LABS: HEMATOCRIT 21.6 % (36-54)
[2022-09-25 08:20] LABS: ERYTHROCYTE SEDIMENTATION RATE 18 MM/HR (0-15)
[2022-09-25] MEDS: TIMOLOL MALEATE 0.5% OPHTHALMIC DROPS 5 ML EACH EYE SCH (08:28)
[2022-09-25] MEDS: TAMSULOSIN HCL 0.4 MG CAP PO SCH (08:28)
[2022-09-25] MEDS: CYANOCOBALAMIN (VITAMIN B-12) 1,000 MCG TABLET PO SCH (08:28)
[2022-09-25] MEDS: VITAMIN B COMPLEX 1 CAP/TAB PO SCH (08:28)
[2022-09-25] MEDS: MULTIVITS,CA,MINERALS/IRON/FA 1 TABLET PO SCH (08:28)
[2022-09-25] MEDS: DORZOLAMIDE 2% OPHTHALMIC SOLN 5ML OP SCH (08:28)
[2022-09-25] MEDS: CARVEDILOL 6.25 MG TABLET (COREG) PO SCH (08:29)
[2022-09-25] MEDS: CHOLECALCIFEROL (VITAMIN D3) 5,000 UNIT TABLET PO SCH (08:29)
[2022-09-25] MEDS: TRELEGY ELLIPTA INH SCH (08:30)
[2022-09-25] MEDS: metFORMIN HCL 500 MG TABLET PO SCH (08:41)
[2022-09-25] MEDS ORDERED: CHOL500013 PO (10:51)
[2022-09-25] MEDS ORDERED: INSU100I22 SQ (10:51)
[2022-09-25] MEDS ORDERED: FERR325T30 PO (10:51)
[2022-09-25] MEDS ORDERED: TAMS0.4C96 PO (10:51)
[2022-09-25 11:44] VITALS: BP_SYST 111
[2022-09-25 12:38] VITALS: BP_SYST 111
== END 2022-09-25 13:50 | DRG 480 ==
LOC: SED 14:06 → SMU 21:00
PROVIDERS: ADMIT Preventive Medicine Preventive Medicine/Occupational Environmental Medicine; ATTEND Preventive Medicine Preventive Medicine/Occupational Environmental Medicine
PROC: 0QS706Z Reposition Left Upper Femur with Intramedullary Internal Fixation Device, Open Approach (ICD-10-PCS; principal; 2022-09-22 16:25)
PROC: 30233N1 Transfusion of Nonautologous Red Blood Cells into Peripheral Vein, Percutaneous Approach (ICD-10-PCS; 2022-09-24)
DX: S72.142A Displaced intertrochanteric fracture of left femur, initial encounter for closed fracture (principal); E43 Unspecified severe protein-calorie malnutrition; J96.10 Chronic respiratory failure, unspecified whether with hypoxia or hypercapnia; N20.1 Calculus of ureter; D61.818 Other pancytopenia; J44.9 Chronic obstructive pulmonary disease, unspecified; I48.91 Unspecified atrial fibrillation; E03.9 Hypothyroidism, unspecified; N32.9 Bladder disorder, unspecified; E78.5 Hyperlipidemia, unspecified; D64.9 Anemia, unspecified; K21.9 Gastro-esophageal reflux disease without esophagitis; E11.65 Type 2 diabetes mellitus with hyperglycemia; N40.0 Benign prostatic hyperplasia without lower urinary tract symptoms; R74.01 Elevation of levels of liver transaminase levels; E88.09 Other disorders of plasma-protein metabolism, not elsewhere classified; M51.36 Other intervertebral disc degeneration, lumbar region; W01.0XXA Fall on same level from slipping, tripping and stumbling without subsequent striking against object, initial encounter; Y93.01 Activity, walking, marching and hiking; I10 Essential (primary) hypertension; M50.30 Other cervical disc degeneration, unspecified cervical region; D69.59 Other secondary thrombocytopenia; Z20.822 Contact with and (suspected) exposure to COVID-19; Z79.899 Other long term (current) drug therapy; Z79.01 Long term (current) use of anticoagulants; Z79.4 Long term (current) use of insulin; Z79.82 Long term (current) use of aspirin; Y92.89 Other specified places as the place of occurrence of the external cause; Y99.8 Other external cause status; D72.819 Decreased white blood cell count, unspecified; E83.51 Hypocalcemia
CPT/HCPCS: 36415; 71045; 72131; 72192-TC; 76000; 76376; 76770; 80048; 80053; 81000; 82272; 82607; 82746; 83735; 84100; 84443; 84484; 85025; 85610-TC; 85651-TC; 85730-TC; 86140; 86886; 86900; 86901; 86920; 87081; 93005; 93306; 94010; 94760; 96361; 96374; 97110-GP; 97116-GP; 97530-GP; 99285; C1713; C1769; J1815; J2270; J3010; J3490; J7030; J7060; P9021